=== PATIENT | female | born 1980 ===

== ENCOUNTER 2018-08-24 12:20 | Emergency (ER) | payer MEDICAID ==
[2018-08-24 12:21] VITALS: BMI 23.5
[2018-08-24 13:25] VITALS: O2SAT 100
--- NOTE | 2018-08-24 14:01 | ED PDOC ---
HPI: Female Pain Time Seen by Provider: 08/24/18 13:27 Chief Complaint (Nursing): Female Genitourinary Chief Complaint (Provider): Dysuria History Per: Patient History/Exam Limitations: no limitations Onset/Duration Of Symptoms: Days (3x) Current Symptoms Are (Timing): Still Present Quality Of Discomfort: "Pain" Additional Complaint(s): 38 year old female with a history of asthma and cervical cancer presents to the ED for an evaluation of dysuria and urinary frequency onset Friday. Patient reports of vaginal irritation/itching when urine passes. She has had a UTI in the past with similar symptoms. Otherwise, she denies fever, nausea, vomiting, diarrhea, abdominal pain, hematuria, back pain, vaginal bleeding or discharge. 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 PMD: Norman,Singh Abnormal Vaginal Bleeding: No Past Medical History Reviewed: Historical Data, Nursing Documentation, Vital Signs Vital Signs: Last Vital Signs Temp 98.1 F 08/24/18 13:22 Pulse 62 08/24/18 13:22 Resp 16 08/24/18 13:22 BP 136/81 08/24/18 13:22 Pulse Ox 100 08/24/18 13:22 - Medical History PMH: Asthma, Malignancy Other PMH: cervical cancer - Surgical History Other surgeries: hysterectomy s/p cervix cancer - Family History Family History: States: Unknown Family Hx - Home Medications Home Medications: Ambulatory Orders Medication Instructions Recorded Ascorbic Acid [Vitamin C] 500 mg PO 11/05/13 Tramadol 50 02/05/14 Acetaminophen/Hydrocodone Bi 2 tab PO QID #10 tab 02/06/14 [Vicodin 300 mg-5 mg] Acetaminophen/Oxycodone Hydr 1 tab PO Q6 PRN #10 tab 02/25/14 [Percocet 325 mg-2.5 mg] diaZEpam [Valium] 5 mg PO Q8 #10 tab 02/25/14 traMADol [Ultram] 50 mg PO QID PRN #20 tab 04/30/14 Olopatadine 0.1% Opht [Patanol 5 1 drop OP BID #1 bottle 07/03/14 Ml] Famotidine [Pepcid] 20 mg PO BID #20 tab 07/31/14 Clotrimazole 1% Vaginal [Lotrimin 1 applic VG BID PRN #1 tube 08/24/18 1% Vaginal] Nitrofurantoin Macrocrystals 100 mg PO BID #14 cap 08/24/18 [Macrobid] - Allergies Allergies/Adverse Reactions: Allergies Allergy/AdvReac Type Severity Reaction Status Date / Time acetaminophen Allergy RASH Verified 08/24/18 13:21 aspirin Allergy RASH Verified 08/24/18 13:21 Review of Systems ROS Statement: Except As Marked, All Systems Reviewed And Found Negative Constitutional: Negative for: Fever Gastrointestinal: Negative for: Nausea, Vomiting, Abdominal Pain, Diarrhea Genitourinary Female: Positive for: Dysuria, Frequency. Negative for: Hematuria, Vaginal Discharge, Vaginal Bleeding Musculoskeletal: Negative for: Back Pain Physical Exam - Reviewed Nursing Documentation Reviewed: Yes Vital Signs Reviewed: Yes - Physical Exam Comments: GENERAL APPEARANCE: Patient is awake, alert, oriented x 3, in no acute distress, resting comfortably. SKIN: Warm, dry; (-) cyanosis. EYES: (-) conjunctival injection ENMT: Mucous membranes moist. Airway patent: (-) stridor. NECK: Supple, FROM CHEST AND RESPIRATORY: (-) wheezing; (-) rales, (-) rhonchi, (-) rub; breath sounds equal bilaterally. Respirations even and nonlabored. HEART AND CARDIOVASCULAR: (-) irregularity ABDOMEN AND GI: Soft; (+) suprapubic tenderness (-) distention (-) guarding (-) CVA tenderness EXTREMITIES: (-) deformity NEURO AND PSYCH: Mental status as above; (-) focal findings. Gait: steady. Speech: clear. (-) facial asymmetry - ECG O2 Sat by Pulse Oximetry: 100 (RA) Pulse Ox Interpretation: Normal Medical Decision Making Medical Decision Making: Time: 1325 Impression: dysuria; probable UTI Plan: Pyridium 200mg Urine culture Urinalysis 1420 U/A reviewed with no evidence of UTI. Results discussed with patient using clipper and turner # [id number]. Patient reports no concern for STDs as she has not been sexually active since 2009. Patient further reports that on she did have white, clumpy vaginal discharge. Patient agreeable to treatment for clinical UTI and yeast infection. Macrobid 100mg and Diflucan 150mg PO ordered. 1500 On re-evaluation, patient reports improvement of symptoms. On exam, patient remains AAOx3, in no acute distress. Vitals stable. Lab/Diagnostic results d/w the patient in great detail. Diagnosis of UTI; yeast infection d/w the patient. Based on history, exam and diagnostic results, plan will be for outpatient follow up with PMD/OBGYN. Patient instructed to follow-up with pmd / referral provided / the clinic in 1- 2 days without fail. Advised to take medication as prescribed. Return to the emergency room at any time for any new or worsening symptoms. Patient states she fully agrees with and understands discharge instructions. States that she agrees with the plan and disposition. Verbalized and repeated discharge instructions and plan. I have given the patient opportunity to ask any additional questions. Scribe Attestation: Documented by Roni Haynes, acting as a scribe for Blanca Ortiz PA-C. Provider Scribe Attestation: All medical record entries made by the Scribe were at my direction and personally dictated by me. I have reviewed the chart and agree that the record accurately reflects my personal performance of the history, physical exam, medical decision making, and the department course for this patient. I have also personally directed, reviewed, and agree with the discharge instructions and disposition. Disposition - Clinical Impression Clinical Impression: Urinary tract infection, Yeast infection, Vaginal irritation - Patient ED Disposition Is Patient to be Admitted: No Counseled Patient/Family Regarding: Studies Performed, Diagnosis, Need For Followup, Rx Given - Disposition [facility]errals[facility]Outside] primary, doctor [Other] Disposition: Routine/Home Disposition Time: 15:00 Condition: STABLE Additional Instructions: La atencin mdica de emergencia que recibi hoy se dirigi a dariusz sntomas agudos. Si le recetaron algn medicamento, llnelo y tmelo segn las indicaciones. Los sntomas pueden tardar varios vanessa en resolverse. Regrese al Departamento de Emergencias si dariusz sntomas empeoran, no mejoran o si tiene otros problemas. Comunquese con haley mdico dentro de 2 vanessa para yessenia nueva evaluacin y karine un seguimiento o llame a amanda de los mdicos / clnicas a los que aburto sido referido y que figuran en el formulario de Informacin de visita al paciente que se incluye en haley paquete de alli. Lleve todos los documentos que le entregaron al momento del alli junto con todos los medicamentos que est tomando para haley visita de seguimiento. Nuestro tratamiento no puede reemplazar la atencin mdica continua por parte de un proveedor de atencin primaria (PCP) fuera del departamento de emergencias. Prescriptions: Clotrimazole 1% Vaginal [Lotrimin 1% Vaginal] 1 applic VG BID PRN #1 tube PRN Reason: vaginal irritation Nitrofurantoin Macrocrystals [Macrobid] 100 mg PO BID #14 cap Instructions: Urinary Tract Infections in Adults, Yeast Infection (DC) Forms: needmade (Urdu), [facility] ED School/Work Excuse Print Language: GREENLANDIC - POA Present On Arrival: None Results - Lab Results Lab Results: 08/24/18 14:02 Urine Color Yellow Urine Clarity Clear Urine pH 6.0 Ur Specific [place] 1.028 Urine Protein Negative Urine Glucose (UA) Neg Urine Ketones Negative Urine Blood Negative Urine Nitrate Negative Urine Bilirubin Negative Urine Urobilinogen 0.2-1.0 Ur Leukocyte Esterase Neg Urine RBC (Auto) 1 Urine Microscopic WBC < 1 Ur Squamous Epith Cells 4
[2018-08-24 14:10] LABS: SQUAMOUS EPITHIAL 4 /hpf (0-5); URINE BILIRUBIN NEGATIVE (NEGATIVE); URINE BLOOD NEGATIVE (NEGATIVE); URINE CLARITY CLEAR (Clear); URINE COLOR YELLOW (YELLOW); URINE GLUCOSE (UA) NEG (NEGATIVE); URINE LEUKOCYTE ESTERASE NEG Leu/uL (Negative); URINE PROTEIN NEGATIVE (NEGATIVE); URINE UROBILINOGEN 0.2-1.0 mg/dL (0.2-1.0)
[2018-08-24] MEDS ORDERED: Fluconazole 150 MG TAB PO ONE ×2 (14:30→14:43)
[2018-08-24 16:05] VITALS: BP 122/68; PULSE 78; RESP 18; TEMP 98
== END 2018-08-24 16:03 | disposition home or self-care (01) ==
LOC: H.ER 12:20
DX: N39.0 Urinary tract infection, site not specified (principal); B37.3 Candidiasis of vulva and vagina; N89.8 Other specified noninflammatory disorders of vagina; Z85.41 Personal history of malignant neoplasm of cervix uteri; Z90.710 Acquired absence of both cervix and uterus